=== PATIENT | male | born 1970 | race Caucasian/White ===

== ENCOUNTER 2018-03-21 07:18 | Emergency (ER) | payer BC ==
[2018-03-21] MEDS ORDERED: LORazepam 0.5 MG Tab PO ONE (07:32)
--- NOTE | 2018-03-21 07:39 | EDM.PDOC ---
ED HPI GENERAL MEDICAL PROBLEM - General Chief Complaint: Syncope Stated Complaint: low blood pressure, dizzy, lightheaded Time Seen by Provider: 03/21/18 07:25 Source of Information: Reports: Patient History Limitations: Reports: No Limitations - History of Present Illness Onset: Today Location: Reports: Generalized Quality: Reports: Other (reports he feels dizziness, fatigue, and generally unwell) Severity: Moderate Context: Reports: Other (reports he drinks alcohol heavily. reports he drank approx 10 beers last night) Associated Symptoms: Reports: No Other Symptoms - Related Data Allergies Allergy/AdvReac Type Severity Reaction Status Date / Time No Known Allergies Allergy Verified 03/21/18 07:27 Home Meds: Home Meds Lisinopril 20 mg PO DAILY 11/09/16 [History] Ibuprofen [Advil] 400 mg PO Q6H PRN 03/21/18 [History] ED ROS GENERAL - Review of Systems Review Of Systems: See Below Constitutional: Reports: No Symptoms Respiratory: Reports: No Symptoms Cardiovascular: Reports: No Symptoms Endocrine: Reports: No Symptoms GI/Abdominal: Reports: Diarrhea : Reports: No Symptoms Skin: Reports: No Symptoms Neurological: Reports: Dizziness, Weakness Psychiatric: Reports: No Symptoms ED EXAM, GENERAL - Physical Exam Exam: See Below Exam Limited By: No Limitations General Appearance: Alert, WD/WN, No Apparent Distress Eye Exam: Bilateral Eye: Nystagmus, Other (sclera are red and irritated) Head: Atraumatic, Normocephalic Neck: Normal Inspection, Supple, Non-Tender, Full Range of Motion Respiratory/Chest: No Respiratory Distress, Lungs Clear, Normal Breath Sounds, No Accessory Muscle Use, Chest Non-Tender Cardiovascular: Normal Peripheral Pulses, Regular Rate, Rhythm, No Edema, No Gallop, No JVD, No Murmur, No Rub Peripheral Pulses: 2+: Radial (L), Radial (R) GI/Abdominal: Soft, Non-Tender, No Organomegaly, No Distention, No Mass (Male) Exam: Deferred Extremities: Normal Inspection, Normal Range of Motion, Non-Tender, Normal Capillary Refill, No Pedal Edema Neurological: Alert, Oriented, CN II-XII Intact, Normal Cognition, Normal Gait, Normal Reflexes, No Motor/Sensory Deficits, Other (horizontal nystagumus, mild tremulousness of the hands) Psychiatric: Normal Affect, Normal Mood Skin Exam: Warm, Dry, Intact, Normal Color, No Rash Lymphatic: No Adenopathy Course - Vital Signs Last Recorded V/S: Last Vital Signs Temp 35.9 C 03/21/18 07:24 Pulse 76 03/21/18 08:29 Resp 18 03/21/18 07:24 BP 111/74 03/21/18 08:29 Pulse Ox 96 03/21/18 07:24 - Orders/Labs/Meds Orders: Active Orders 24 hr Category Date Time Status Sodium Chloride 0.9% [Normal Saline] 1,000 ml Med 03/21/18 07:45 Active IV ASDIRECTED Medication Orders Sodium Chloride (Normal Saline) 1,000 mls @ 999 mls/hr IV ASDIRECTED ALEX Last Admin: 03/21/18 07:44 Dose: 999 mls/hr Labs: Laboratory Tests 03/21/18 03/21/18 Range/Units 07:35 07:35 WBC 7.4 (5.0-10.0) 10^3/uL RBC 4.82 (4.50-6.00) 10^6/uL Hgb 15.8 (14.0-18.0) g/dL Hct 45.5 (40.0-54.0) % MCV 94.4 H (82.0-94.0) fL MCH 32.8 H (27.0-32.0) pg MCHC 34.7 (33.0-38.0) g/dL RDW Coeff of Yazmin 11.8 (11.0-15.0) % Plt Count 197 (150-400) 10^3/uL Neut % (Auto) 66.2 (35-85) % Lymph % (Auto) 22.4 (10-55) % [place] % (Auto) 7.6 (0-16) % Eos % (Auto) 3.5 (0-5) % Baso % (Auto) 0.3 (0-3) % Neut # (Auto) 4.90 (1.80-7.00) 10^3/uL Lymph # (Auto) 1.66 (1.00-4.80) 10^3/uL [place] # (Auto) 0.56 (0.00-0.80) 10^3/uL Eos # (Auto) 0.26 (0.00-0.45) 10^3/uL Baso # (Auto) 0.02 10^3/uL Sodium 140 (136-145) mEq/L Potassium 4.9 D (3.5-5.0) mEq/L Chloride 104 (98-106) mEq/L Carbon Dioxide 22 (21-32) mmol/L BUN 12 (7-18) mg/dL Creatinine 1.0 (0.7-1.3) mg/dL Est Cr Clr Drug Dosing 99.35 mL/min Estimated GFR (MDRD) > 60 (>=60) mL/min Glucose 85 (75-99) mg/dL Calcium 9.1 (8.4-10.1) mg/dL Total Bilirubin 0.3 (0.0-1.0) mg/dL AST 31 (15-37) U/L ALT 31 (12-78) U/L Alkaline Phosphatase 51 (46-116) U/L Total Protein 8.2 (6.4-8.2) g/dL Albumin 4.3 (3.4-5.0) g/dL Meds: Medications Generic Name Dose Route Start Last Admin Trade Name Freq PRN Reason Stop Dose Admin Sodium Chloride 1,000 mls @ 999 mls/hr 03/21/18 07:45 03/21/18 07:44 Normal Saline IV 999 mls/hr ASDIRECTED ALEX Administration Discontinued Medications Generic Name Dose Route Start Last Admin Trade Name Freq PRN Reason Stop Dose Admin Lorazepam 0.5 mg 03/21/18 07:32 03/21/18 07:42 Ativan PO 03/21/18 07:33 0.5 mg ONETIME ONE Administration Departure - Departure Time of Disposition: 08:45 Disposition: Refer to Observation Clinical Impression: Alcohol withdrawal - Discharge Information Instructions: Alcohol Withdrawal Forms: ED Department Discharge - My Orders Last 24 Hours: My Active Orders 03/21/18 07:45 Sodium Chloride 0.9% [Normal Saline] 1,000 ml IV ASDIRECTED - Assessment/Plan Last 24 Hours: My Active Orders 03/21/18 07:45 Sodium Chloride 0.9% [Normal Saline] 1,000 ml IV ASDIRECTED Assessment:: Physical exam and history are consistent with alcohol withdrawal. I attempted to [place] the patient and his family regarding alcohol abuse however the patient's significant other stated "I don't need a lecture from you" and refused to communicate further. His labs and VS are grossly normal. I do not suspect acute or emergent pathology including but not limited to CVA, hypotension, ACS, or infection. Here in the ED he s rehydrated with 1L NS IV and given 0.5 mg ativan. These interventions relieved the patient's symptoms. I advised the patient to stop drinking alcohol (to which he shook his head no), rest, hydrate, fu with PCP in 3-5 days, return to the ED if change or worse. Patient reports understanding and agreement with plan. DC home stable in care of significant other.
[2018-03-21] MEDS ORDERED: Sodium Chloride 0.9% 1,000 ML IV SCH (07:45)
[2018-03-21 08:00] LABS: CHLORIDE,CL 104 mEq/L (98-106); SODIUM,NA 140 mEq/L (136-145)
[2018-03-21 08:31] VITALS: BP 111/74
== END 2018-03-21 08:50 | disposition home or self-care (01) ==
LOC: CC.ED 07:18
DX: F10.239 Alcohol dependence with withdrawal, unspecified (principal); Z79.899 Other long term (current) drug therapy
CPT/HCPCS: 36415; 80053; 85025; 96360; 99284; A9270; J7030

== ENCOUNTER 2022-05-02 10:39 | Emergency (ER) | payer OTHER ==
[2022-05-02 11:25] LABS: CHLORIDE,CL 93 mEq/L (98-106); ESTIMATED GFR 108 mL/min (>=60); SODIUM,NA 126 mEq/L (136-145)
[2022-05-02 12:39] VITALS: BP 98/69; PULSE 109
== END 2022-05-02 11:58 | disposition home or self-care (01) ==
LOC: CC.ED 10:39
DX: E87.1 Hypo-osmolality and hyponatremia (principal); R19.7 Diarrhea, unspecified; R63.4 Abnormal weight loss; I10 Essential (primary) hypertension; Z79.899 Other long term (current) drug therapy; Z20.822 Contact with and (suspected) exposure to COVID-19
CPT/HCPCS: 36415; 71046; 80053; 85025; 86140; 99285; U0002

== ENCOUNTER 2024-05-07 01:37 | Observation (INO) | payer OTHER ==
[2024-05-07 01:54] LABS: BASOPHILS ABSOLUTE AUTO 0.05 10^3/uL (0.00-0.50); BASOPHILS PERCENT AUTO 1.1 % (0-1); EOSINOPHILS ABSOLUTE AUTO 0.07 10^3/uL (0.00-1.50); EOSINOPHILS PERCENT AUTO 1.5 % (0-6); HEMATOCRIT 25.8 % (42.0-52.0); HEMOGLOBIN 8.9 g/dL (14.0-18.0); IMMATURE GRAN ABSOLUTE AUTO 0.02 10^3/uL (0.00-0.49); IMMATURE GRAN PERCENT AUTO 0.4 % (0.0-4.9); LYMPHOCYTES ABSOLUTE AUTO 1.34 10^3/uL (0.60-5.00); LYMPHOCYTES PERCENT AUTO 29.3 % (24-44); MEAN CORPUSCULAR HEMOGLOBIN 31.3 pg (27.0-32.0); MEAN CORPUSCULAR HGB CONC 34.5 g/dL (32.0-36.0); MEAN CORPUSCULAR VOLUME 90.8 fL (83.0-97.0); MONOCYTES PERCENT AUTO 8.8 % (0-10); NEUTROPHILS ABSOLUTE AUTO 2.69 x10^3/uL (1.80-8.00); NEUTROPHILS PERCENT AUTO 58.9 % (41-71); PLATELET COUNT,PLT 51 10^3/uL (150-400); RED BLOOD CELL COUNT 2.84 x10^6/uL (4.50-6.00); WHITE BLOOD CELL COUNT,WBC 4.6 10^3/uL (4.0-11.0)
[2024-05-07 02:09] LABS: ALBUMIN 2.8 g/dL (3.4-5.0); BILIRUBIN TOTAL 0.7 mg/dL (0.0-1.0); CALCIUM 7.9 mg/dL (8.4-10.1); EST CRCL DRUG DOSING (CG) 93.08 mL/min; MAGNESIUM 1.7 mg/dL (1.8-2.4); POTASSIUM,K 3.5 mEq/L (3.5-5.0); PROTEIN TOTAL,TP 7.1 g/dL (6.4-8.2)
[2024-05-07] MEDS: Sodium Chloride 0.9% 1,000 ML IV ONE ×2 (02:09→03:09)
[2024-05-07] MEDS ORDERED: LORazepam 0.5 MG Tab PO PRN (03:53)
[2024-05-07] MEDS: Norepinephrine Bit/D5W Premix 250 ML IV SCH (04:08)
[2024-05-07] MEDS: Sodium Chloride 0.9% 1,000 ML IV SCH (04:16)
[2024-05-07] MEDS: Magnesium Sulfate/Water 2 GM in Premix Bag 1 BAG IV ONE (04:17)
[2024-05-07 04:28] LABS: BASOPHILS ABSOLUTE AUTO 0.06 10^3/uL (0.00-0.50); BASOPHILS PERCENT AUTO 1.1 % (0-1); IMMATURE GRAN ABSOLUTE AUTO 0.03 10^3/uL (0.00-0.49); IMMATURE GRAN PERCENT AUTO 0.5 % (0.0-4.9); LYMPHOCYTES ABSOLUTE AUTO 0.87 10^3/uL (0.60-5.00); LYMPHOCYTES PERCENT AUTO 15.8 % (24-44); MEAN CORPUSCULAR HEMOGLOBIN 31.1 pg (27.0-32.0); MEAN CORPUSCULAR HGB CONC 33.3 g/dL (32.0-36.0); MEAN CORPUSCULAR VOLUME 93.3 fL (83.0-97.0); MONOCYTES ABSOLUTE AUTO 0.29 10^3/uL (0.00-1.50); MONOCYTES PERCENT AUTO 5.3 % (0-10); NEUTROPHILS ABSOLUTE AUTO 4.25 x10^3/uL (1.80-8.00); NEUTROPHILS PERCENT AUTO 77.3 % (41-71); PLATELET COUNT,PLT 54 10^3/uL (150-400); RED BLOOD CELL COUNT 2.09 x10^6/uL (4.50-6.00); WHITE BLOOD CELL COUNT,WBC 5.5 10^3/uL (4.0-11.0)
[2024-05-07 04:44] LABS: HEMOGLOBIN 6.5 g/dL (14.0-18.0)
[2024-05-07 04:45] LABS: HEMATOCRIT 19.5 % (42.0-52.0)
[2024-05-07 04:49] LABS: ALBUMIN 2.4 g/dL (3.4-5.0); BILIRUBIN TOTAL 0.6 mg/dL (0.0-1.0); CALCIUM 7.2 mg/dL (8.4-10.1); CREATININE 1.1 mg/dL (0.7-1.3); EST CRCL DRUG DOSING (CG) 84.62 mL/min; MAGNESIUM 1.7 mg/dL (1.8-2.4); POTASSIUM,K 3.9 mEq/L (3.5-5.0)
[2024-05-07 04:50] LABS: TSH ULTRASENSITIVE 2.49 uIU/mL (0.36-5.60)
[2024-05-07] MEDS: Folic Acid 1 MG, Multivitamins 1 TAB, Thiamine 100 MG, Magnesium Oxide 400 MG PO ONE (05:00)
[2024-05-07] MEDS ORDERED: Pantoprazole 40 MG in Sodium Chloride 0.9% 100 ML IV SCH (05:30)
[2024-05-07 05:47] LABS: INR 1.27 (0.92-1.18); PROTHROMBIN TIME 13.2 SEC (9.3-11.3)
[2024-05-07] MEDS: Pantoprazole 40 MG Vial IVPUSH ONE (05:55)
[2024-05-07] MEDS: Tranexamic Acid 2,000 MG in Sodium Chloride 0.9% 100 ML IV ONE (06:01)
[2024-05-07] MEDS: Ondansetron 4 MG/2 ML SDV IVPUSH ONE (06:26)
[2024-05-07 06:56] LABS: APPEARANCE,URINE CLEAR (CLEAR); BILIRUBIN,URINE NEGATIVE (NEGATIVE); COLOR,URINE YELLOW (YELLOW); GLUCOSE,URINE 100 mg/dL (NEGATIVE); KETONES,URINE NEGATIVE (NEGATIVE); LEUKOCYTE ESTERASE,URINE NEGATIVE (NEGATIVE); NITRITE,URINE NEGATIVE (NEGATIVE); OCCULT BLOOD,URINE MODERATE (NEGATIVE); PROTEIN,URINE NEGATIVE (NEGATIVE); UROBILINOGEN,URINE 0.2 EU/dL (0.2-1.0)
[2024-05-07 07:10] LABS: BACTERIA,URINE OCCASIONAL /HPF (NOT SEEN); EPITHELIAL CELLS,URINE RARE /HPF (NOT SEEN); MUCUS,URINE NOT SEEN /HPF (NOT SEEN); RBC,URINE 0-5 /HPF (0-5); WBC,URINE NOT SEEN /HPF (0-5)
[2024-05-07 07:10] LABS: AMPHETAMINES,URINE NEGATIVE (NEGATIVE); BARBITURATES,URINE NEGATIVE (NEGATIVE); BENZODIAZEPINE,URINE NEGATIVE (NEGATIVE); MDMA (ECSTASY), URINE NEGATIVE (NEGATIVE); METHADONE,URINE NEGATIVE (NEGATIVE); METHAMPHETAMINES,URINE NEGATIVE (NEGATIVE); OPIATES,URINE NEGATIVE (NEGATIVE); OXYCODONE,URINE NEGATIVE (NEGATIVE); PHENCYCLIDINE,URINE NEGATIVE (NEGATIVE); TCA,URINE NEGATIVE (NEGATIVE)
[2024-05-07 09:19] VITALS: BP 113/80; PULSE 117
== END 2024-05-07 07:20 ==
LOC: CC.ED 01:37 → CC.MS 02:20 → UNDOADMOB 02:25 → CC.MS 02:25 → UNDODISOB 07:20
PROVIDERS: ADMIT Nurse Practitioner; ATTEND Nurse Practitioner
DX: E83.42 Hypomagnesemia (principal); I95.9 Hypotension, unspecified; D50.0 Iron deficiency anemia secondary to blood loss (chronic); S36.039A Unspecified laceration of spleen, initial encounter
CPT/HCPCS: 36415; 36430; 70450; 71045; 72125; 74176; 80053; 80305; 80307; 81001; 83605; 83735; 84443; 84484; 85025; 85610; 86850; 86900; 86901; 86920; 86922; 87040; 93005; 93010; 96361; 96365; 96368; 96375; 99236; 99285; G0378; J2405; J2470; J3475; J3490; J7030; P9016